=== PATIENT | female | born 1985 | race Caucasian/White ===

== ENCOUNTER 2024-07-19 16:00 | Outpatient (CLI) | payer OTHER, SELFPAY | END 2024-07-19 16:01 | disposition home or self-care (01) | PROVIDERS: PCP Family Medicine; Visit Provider Family Medicine | DX: R10.11 Right upper quadrant pain (principal) | CPT/HCPCS: 80053; 83690 ==

== ENCOUNTER 2024-08-03 09:10 | Outpatient (CLI) | payer OTHER, SELFPAY ==
--- NOTE | 2024-08-03 09:15 | CRLHL7_ITS ---
For Patients: As a result of the Century Cures Act, medical imaging exams and procedure reports are released immediately into your electronic medical record. You may view this report before your referring provider. If you have questions, please contact your health care provider. INDICATION: Right upper quadrant pain COMPARISON: none TECHNIQUE: Real time hancock scale imaging and color Doppler analysis was performed of the right upper quadrant. FINDINGS: The patient`s liver is of normal size and has uniform echogenicity. There is a normal appearance of the hepatic IVC and proximal abdominal aorta. There is no evidence of ascites. The gallbladder is of normal size and there is a nonmobile hyperechoic focus measuring 4 millimeters associated with the gallbladder wall. The gallbladder wall measures 1 mm in thickness. The common bile duct is of normal size and measures 5 mm in diameter at the level of the lulu hepatis. The pancreas appears normal. There is no evidence of a stone or hydronephrosis within the right kidney. The right kidney measures 11.8 cm in length. IMPRESSION: 4 millimeter gallbladder polyp. Remainder unremarkable. Dictated by Jamie Lewis MD @ 08/03/2024 12:04:26 PM (Electronically Signed)
== END 2024-08-03 09:11 | disposition home or self-care (01) ==
PROVIDERS: PCP Family Medicine; Visit Provider Family Medicine
DX: R10.11 Right upper quadrant pain (principal); K82.4 Cholesterolosis of gallbladder
CPT/HCPCS: 76705

== ENCOUNTER 2024-08-29 10:56 | Outpatient (CLI) | payer OTHER, SELFPAY | END 2024-08-29 10:57 | disposition home or self-care (01) | LOC: NM 10:56 | PROVIDERS: PCP Family Medicine; Visit Provider Family Medicine | DX: R10.11 Right upper quadrant pain (principal) | CPT/HCPCS: 78227; A9537; J2805 ==

== ENCOUNTER 2024-12-13 07:34 | Outpatient (CLI) | payer OTHER, SELFPAY ==
--- NOTE | 2024-12-13 07:45 | CRLHL7_ITS ---
For Patients: As a result of the Cures Act, medical imaging exams and procedure reports are released immediately into your electronic medical record. You may view this report before your referring provider. If you have questions, please contact your health care provider. DIGITAL DIAGNOSTIC BILATERAL MAMMOGRAM USING TOMOSYNTHESIS AND COMPUTER-AIDED DETECTION LEFT BREAST ULTRASOUND CLINICAL HISTORY: LEFT breast lump. COMPARISON: None TECHNIQUE: Digital BILATERAL mammogram in four projections with computer-aided detection. Tomosynthesis was used in this interpretation. Real-time ultrasound imaging of LEFT breast with imaging documentation. BREAST COMPOSITION: The breasts are heterogeneously dense, which may obscure small masses. FINDINGS: 3D CC/MLO BILATERAL mammogram images submitted. Postreduction mammoplasty changes are present. No suspicious mass or architectural distortion. No adenopathy or suspicious calcifications. Targeted LEFT breast ultrasound performed. At 4 o`clock 6 cm from the nipple, there is a circumscribed cyst at posterior depth measuring 5 x 3 x 5 millimeters. No suspicious findings. IMPRESSION: No evidence of malignancy. Benign fibrocystic change. RECOMMENDATIONS: Age-appropriate screening mammography. A lay language report of this examination will be provided to the patient. BI-RADS Category 2: Benign appearance or behavior Dictated by Jamie Lewis MD @ 12/13/2024 9:20:03 AM jj/Dictated by: Jamie Lewis MD @ 12/13/2024 9:20:00 AM (Electronically Signed)
--- NOTE | 2024-12-13 08:15 | CRLHL7_ITS ---
For Patients: As a result of the Cures Act, medical imaging exams and procedure reports are released immediately into your electronic medical record. You may view this report before your referring provider. If you have questions, please contact your health care provider. SEE DIGITAL DIAGNOSTIC BILATERAL MAMMOGRAM PERFORMED SAME DAY CRL:damion bruno/Dictated by: Jamie Lewis MD @ 12/13/2024 9:20:00 AM (Electronically Signed)
== END 2024-12-13 07:35 | disposition home or self-care (01) ==
PROVIDERS: PCP Family Medicine; Visit Provider Physician Assistant
DX: N63.20 Unspecified lump in the left breast, unspecified quadrant (principal)
CPT/HCPCS: 76642; 77066; G0279

== ENCOUNTER 2025-04-12 11:12 | Outpatient (CLI) | payer OTHER, SELFPAY ==
--- NOTE | 2025-04-24 08:38 | P.SLS_ITS ---
Sleep Study Details Details Interpreting Provider: Keo Date of Sleep Study: 04/12/25 Sleep Study Details: STUDY TYPE:? home unattended ? BMI:? 27.3 ORDERING PROVIDER:? Arnaldo INDICATION:? concern for sleep apnea ? SLEEP SUMMARY:? 510 minutes monitored RESPIRATORY SUMMARY:? AHI 1.3 Low oxygen 92 Snoring 98.9% PERIODIC LIMB MOVEMENTS OF SLEEP:? not recorded CARDIAC:? range 66-109, mean 81 beats per minute IMPRESSION:? primary snoring. This study does not demonstrate clinically significant obstructive sleep apnea. RECOMMENDATION: If sleep disorder is strongly suspected would recommend an in- lab study or repeat study with sedative hypnotic agent.
== END 2025-04-12 11:13 | disposition home or self-care (01) ==
LOC: SLEEP 11:13
PROVIDERS: PCP Family Medicine; Visit Provider Family Medicine
DX: R06.83 Snoring (principal); G47.34 Idiopathic sleep related nonobstructive alveolar hypoventilation; G47.10 Hypersomnia, unspecified
CPT/HCPCS: 95806

== ENCOUNTER 2025-05-28 13:46 | Outpatient (CLI) | payer OTHER, SELFPAY ==
--- NOTE | 2025-05-28 13:45 | CRLHL7_ITS ---
For Patients: As a result of the Century Cures Act, medical imaging exams and procedure reports are released immediately into your electronic medical record. You may view this report before your referring provider. If you have questions, please contact your health care provider. INDICATION : Perianal fistula TECHNIQUE : Pelvic MRI rectal protocol T1-T2 axial coronal sagittal imaging with postcontrast T1. 15 cc of intravenous Dotarem. FINDINGS : Anal complex: There is a fistulous tract extending from the anterior low anal canal at the 12 o`clock position anterior sphincteric extending but terminating at the level of the left levator. Enhancement and thickening with the fistulous tract measuring 8 millimeters. Uterus: An IUD is present. No mass lesion. Anteverted anteflexed. Cervix and vagina: Unremarkable Bladder: Unremarkable Lymph nodes: No suspicious lymph node enlargement. Skeletal: No suspicious abnormalities. IMPRESSION : 1. 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 2. Uterine IUD placement satisfactory. Dictated by Ricardo Vu MD @ 05/29/2025 4:42:51 PM (Electronically Signed)
== END 2025-05-28 13:47 | disposition home or self-care (01) ==
LOC: MRI 13:47
PROVIDERS: PCP Family Medicine; Visit Provider Surgery
DX: K60.30 Anal fistula, unspecified (principal)
CPT/HCPCS: 72197; A9575